=== PATIENT | female | born 1975 | race Caucasian/White ===

== ENCOUNTER 2016-12-22 14:42 | Emergency (ER) | payer MEDICARE ==
--- NOTE | ~2016-12-22 | ER ---
Unit #: [id number] #: [id number] Patient: KEDAR LOOMIS [id number] [address] [place], [place] [address] [id number] E MR#: [id number] NAME: KEDAR LOOMIS ROOM: Sex: F Age: 41 : 1975 Service Date: 12/22/2016 Attending Physician: Roscoe Sigala M.D. Primary Care Physician: Cosmo Balderas M.D. EMERGENCY DEPT PHYSICIAN NOTE Ms. Loomis is a 41-year-old woman who presented to the emergency department today complaining of persistent vomiting and continuing pain in her abdomen ever since an initial ventral hernia repair performed at our facility in October of this year. She stated that although the symptoms have been present in some degree ever since the surgery, they seem worse in the last six days. She also elaborated that subsequent to her original surgery she had to be admitted to [facility] twice in the preceding months for complications related to the original surgery. The original ventral hernia repair was performed at our facility on October 25, 2016. She was discharged in satisfactory condition on October 30, 2016. She subsequently presented to [facility] on November 18, 2016, with the complaint of abdominal pain, tenderness, and elevated white blood cell count. On that admission, she had what was thought to be a postoperative seroma. However, they could not exclude that she also had a superimposed infection. She was covered with antibiotics and cultures ultimately grew out MRSA. She was stabilized and subsequently discharged with a prescription for doxycycline on November 21, 2016. The patient was subsequently readmitted to [facility] on December 01, 2016, for nausea, vomiting, diarrhea, and continued abdominal pain. Apparently, the patient was initially prescribed doxycycline to treat her infection. However, it is noted that the patient had quite a bit of GI distress in attempting to take the medicine. Therefore, her primary care doctor switched her medicine over to Bactrim which seemed to cause even more problems, subsequently having a lot of nausea and vomiting such that she was unable to take adequate oral intake, and by the time of her presentation on December 01, 2016, was found to have acute kidney injury presumed to be related to dehydration and poor oral intake. She was hydrated and stabilized. Her labs and kidney function in particular returned to baseline. At that time, she was again seen by General Surgery at [facility], who did not recommend any additional surgical procedures being deemed necessary. However, during that admission, they aspirated the abdominal wall seroma that was visualized on the CT abdomen and pelvis performed on that visit. Upon her discharge, she was switched back to doxycycline to complete her total course of antibiotics for the previously identified infection. She presented today with the above complaints. We will repeat lab work and perform a CT abdomen and pelvis to attempt to ascertain the cause of her symptoms. After an ER workup is completed, her original surgeon with [facility] will be contacted to assist with disposition of the patient, as well as appropriate followup if indicated. Unit #: [id number] #: [id number] Patient: KEDAR LOOMIS Dictated by... Anitha Hoff/mara TD: 12/22/2016 22:00 JOB #: [id number] EMERGENCY DEPT PHYSICIAN NOTE Page 1 of 1 X Roscoe Sigala MD X EMERGENCY DEPARTMENT REPORT
--- NOTE | ~2016-12-22 | CT4 ---
[facility] A Service of [facility] & [facility] RADIOLOGY TEXT RESULTS PATIENT: KEDAR LOOMIS LOCATION: [facility] : 71 UNIT #: [id number] AGE: [address]: Roscoe Sigala MD SEX: F ORDER DR: [id number] [facility] [address] [place], [place] [address] [id number] E MR#: [id number] Acc #: [id number] NAME: KEDAR LOOMIS : 1975 SEX: F STUDY DATE/TIME: 12/22/2016 15:22 UNIT: GINO ROOM: STUDY DESCRIPTION: CT Abd and Pelv Wo Cont Attending Physician: Roscoe Sigala M.D. Ordering Physician: Roscoe Sigala M.D. Primary Care Physician: Cosmo Balderas M.D. MEDICAL IMAGING REPORT This report is preliminary unless electronic signature is present EXAM Abdomen and pelvis CT without HISTORY Cervical cancer treated in 2017 with subsequent postoperative infection, nausea, vomiting and abdominal pain, diffuse for 6 days. Post hysterectomy and cholecystectomy. Ventral hernia repair. Colon resection. MRSA. COMMENT CT abdomen and pelvis performed without IV or oral contrast media using a urinary tract stone protocol. Lack of intravenous contrast media limits evaluation for pathology other than urinary tract calculus disease. This CT exam was performed with one or more of the following radiation dose reduction techniques: automatic exposure control, adjustment of mA and/or kV according to patient size, and iterative reconstruction. COMPARISON Comparison study from 09/27/2016. FINDINGS Redemonstrated is a noncalcified nodule left lower lobe posterolaterally 6-7 mm in dimension not significantly changed in size and prior. Please refer back to the chest CT from 09/27/2016. The dome of the noncontrast liver is not in the field of view. It is, otherwise, unremarkable. The patient is post cholecystectomy. Study is limited by obesity. The spleen, adrenal glands unremarkable. The pancreas is atrophic but, otherwise, grossly unremarkable on this noncontrast study. There is no intrarenal calculus or hydronephrosis suspected and there is no evidence for abdominal aortic aneurysm. Since the prior study, the patient has had repair of the hernia. The bowel loops are now reduced into the abdomen but there is a sac corresponding to the site of the prior hernia sac which is filled with fluid. It could be hematoma or seroma but infected fluid STS. [facility] A Service of [facility] RADIOLOGY TEXT RESULTS PATIENT: KEDAR LOOMIS LOCATION: [facility] : 71 UNIT #: [id number] AGE: [address]: Roscoe Sigala MD SEX: F ORDER DR: is not excluded and please correlate further clinically. There is still a broad hernia at midline adjacent to this fluid-filled sac which contains fat. There is no bowel herniating into the hernia. The broad dehiscence of the anterior abdominal wall at midline is about 5.8 cm in width. On the coronal reformatted imaging, the remaining sac has a somewhat bilobed configuration consistent with the initial hernia sac. There is probably some postoperative scar left lateral anterior pelvic of soft tissues. Please correlate for prior drain placement or any concern for a fistula. Evaluation of the pelvis shows an unremarkable appearance to the urinary bladder. The patient is post hysterectomy. The study has some oral contrast media present but the lack of IV contrast media limits assessment for metastatic disease. There is nothing to suggest bowel obstruction. The appendix is radiographically normal. There is no drainable fluid collection inside the peritoneal cavity. The fluid-containing hernia sac-like structure in the left anterior abdominal wall measures about 9.1 cm SI dimension, 6 cm AP dimension, and 9.7 cm mL dimension. IMPRESSION 1. Study is limited by lack of IV contrast media. 2. The patient has had interval surgery for an anterior abdominal wall hernia. The bowel loops have now been reduced into the peritoneal cavity and there is no evidence for bowel obstruction. At the site of the prior hernia sac, there is now a fluid-filled sac which is located anteriorly left paramedian location measuring about 9.7 cm mL dimension x 9.1 cm SI dimension x 6 cm AP dimension. This could simply be postoperative hematoma or seroma. If there is concern for infection, fluid could be sampled. Please correlate further clinically. There is no clear inflammatory change in the surrounding tissue at this time. Deep to this fluid-filled sac, there is still a broad defect at midline in the anterior abdominal wall which contains a small amount of fat. There is also what is probably an old drain tract left side laterally level of the pelvis. Please correlate with physical exam findings to exclude any concern for fistula. 3. The appendix is radiographically normal. 4. Stable noncalcified nodule left lower lobe. 5. Post cholecystectomy and hysterectomy. STAT * RESULT Dictated by... Concha Andrea M.D. THIS IS AN ELECTRONICALLY VERIFIED REPORT Concha Andrea M.D. at 12/22/2016 11:05 PM GAYLE/kyra [facility]. [facility] A Service of [facility] & [facility] RADIOLOGY TEXT RESULTS PATIENT: KEDAR LOOMIS LOCATION: [facility] : 71 UNIT #: [id number] AGE: [address]: Roscoe Sigala MD SEX: F ORDER DR: TD: 12/22/2016 16:03 JOB #: [id number] MEDICAL IMAGING REPORT Page 1 of 1 COPY
[~2016-12-22 14:42] MED LIST: ACETAMINOPHEN325 MG PO; ADEPEX PO; ADIPEX PO; ALBUTEROL17 G1 IH; ALBUTEROL17 GM; ALBUTEROL17 GM INH; ALLEGRA180 MG PO; ALPRAZOLAM PO; AMBIEN PO; AMBIEN10 MG PO; AMITRIPTYLINE H50 MG PO; AMITRYPTYLINE PO; ATORVASTATIN CA10 MG PO; AUGMENTIN875 M1 PO; BACTRIM DS TABL1 TA1 PO; CHANTIX PO; COLACE PO; COMBIVENT INH14.7 GM INH; CYMBALTA PO; CYMBALTA30 MG PO; DETROL LA PO; DIAZEPAM PO; DICLOFENAC PO; DITROPAN XL PO; DITROPAN XL5 M2 PO; DOCUSATE SODIU100 MG PO; DOXYCYCLINE HY100 M3 PO; DOXYCYCLINE PO; DULERA 200 MCG/13 GM INH; DULOXETINE HCL60 MG PO; ENABLEX7.5 MG PO; ESTRACE PO; ESTRACE2 MG PO; ESTRADIOL0.5 MG PO; FLAGYL PO; GLIPIZIDE10 MG PO; GLUCOPHAGE500 M1 PO; HYDROCHLOROTH12.5 M1 PO; HYDROCODON-ACE1 EAC9 PO; IMITREX PO; IMITREX50 MG PO; LEVAQUIN PO; LIORESAL10 MG PO; LISINOPRIL20 MG PO; LOPID600 MG PO; LOPRESSOR PO; LORTAB 7.5-5001 TAB PO; METFORMIN PO; MIRALAX255 GM PO; MOBIC PO; MORPHINE IR PO; MS CONTIN PO; MYCOSTATIN POWD15 GM EXT; NABUMETONE500 M1 PO; NEURONTIN PO; NEURONTIN300 MG PO; NEURONTIN600 MG PO; NEXIUM 24HR20 MG; NEXIUM PO; OMEPRAZOLE20 M2 PO; PAXIL PO; PEN-VEE K PO; PERCOCET 10/3251 TAB PO; PERCOCET5/325; PERCOCET5/325 PO; PHENERGAN PO; PREMARIN PO; PREMARIN1.25 MG PO; PREPARATION H O60 GM PR; PREVACID PO; PRILOSEC20 M1 PO; PROAIR HFA8.5 GM INH; PROMETHAZINE HC25 MG PO; PROTONIX PO; PROZAC PO; QVAR7.3 G1 IH; QVAR7.3 GM INH; ROBAXIN PO; SEROQUEL PO; SEROQUEL300 MG PO; SINGULAIR; SINGULAIR PO; SODIUM CHLORI1000 ML IR; SOMA PO; SYMBICORT INH; TIZANIDINE HCL4 M1 PO; TOPAMAX PO; TOPAMAX50 MG PO; TRAMADOL HCL50 M1 PO; VASOTEC PO; VERAMYST10 GM IH; VESICARE PO; VISTARIL50 MG PO; VITAMIN D2000 UNIT PO; VITAMIN D400 UNI2 PO; VOLTAREN75 MG PO; WELLBUTRIN PO; XANAX1 MG PO; ZOCOR PO; ZOCOR10 MG PO; ZOCOR20 MG PO
[2016-12-22 14:49] LABS: BASOPHIL# 0.1 X10e3 (0-0.3); EOSINOPHIL# 1.1 X10e3 (0-0.7); EOSINOPHIL% 9.5 % (0.0-7.0); HEMATOCRIT 36.1 % (35.0-45.0); HEMOGLOBIN 11.4 gm/dL (12.0-16.0); LYMPHOCYTE# 2.7 X10e3 (1.0-3.5); LYMPHOCYTE% 23.4 % (17.0-45.0); MEAN CELL VOLUME 89.3 FL (83-96); MEAN CORPUSCULAR HEMOGLOBIN 28.1 PG (28-34); MEAN CORPUSCULAR HGB CONC 31.5 g/dL (30-36); MEAN PLATELET VOLUME 7.7 FL (6.5-11.5); MONOCYTE% 8.5 % (3.0-12.0); NEUTROPHIL# 6.6 X10e3 (1.5-7.1); NEUTROPHIL% 57.6 % (40-75); PLATELET COUNT 495 X10e3 (140-420); RED BLOOD COUNT 4.04 X10e (3.90-5.30); RED CELL DISTRIBUTION WIDTH 16.9 % (11.0-15.5); WHITE BLOOD COUNT 11.5 X10e3 (4.0-10.5)
[2016-12-22 15:09] LABS: DIFF IND NO
[2016-12-22 15:11] LABS: ALBUMIN SERUM 3.5 g/dL (3.5-5.0); BILIRUBIN, DIRECT 0.1 mg/dL (0.0-0.2); BILIRUBIN,INDIRECT 0.7 mg/dL (0.0-0.9); BILIRUBIN,TOTAL 0.8 mg/dL (0.2-2.0); CALCIUM SERUM 9.7 mg/dL (8.4-10.2); CREATININE SERUM 1.7 mg/dL (0.6-1.4); GLOM FILT RATE Estimated 36.3 mL/min (>60); POTASSIUM 4.6 mmol/L (3.5-5.1); PROTEIN TOTAL SERUM 7.3 g/dL (6.0-8.3)
[2016-12-22 15:23] LABS: URINE SOURCE CLEAN CATCH
[2016-12-22 15:40] LABS: URINE APPEARANCE CLEAR; URINE BILIRUBIN NEG (NEG); URINE BLOOD NEG (NEG); URINE COLOR YELLOW; URINE GLUCOSE NEG (NEG); URINE KETONE NEG (NEG); URINE LEUKOCYTE ESTERASE TRACE (NEG); URINE NITRATE NEG (NEG); URINE PROTEIN NEG (NEG); URINE SPECIFIC GRAVITY 1.014 (1.003-1.035); URINE UROBILINOGEN 0.2 MG/DL (NEG)
[2016-12-22 15:54] LABS: URBCS1 AUWI 0-2 /[HPF] (0-2); URINE BACTERIA AUWI NEG (NEGATIVE); URINE SQUAMOUS EPITHELIAL CELL MOD /[HPF]
[2016-12-22 15:58] LABS: CULTURE INDICATED? NO
== END 2016-12-22 17:21 | disposition home or self-care (01) ==
LOC: CFTX 14:42
DX: K91.840 Postprocedural hemorrhage of a digestive system organ or structure following a digestive system procedure (principal); E86.0 Dehydration; N17.9 Acute kidney failure, unspecified; E11.9 Type 2 diabetes mellitus without complications; E78.5 Hyperlipidemia, unspecified; I10 Essential (primary) hypertension; F31.9 Bipolar disorder, unspecified; K21.9 Gastro-esophageal reflux disease without esophagitis; Z90.710 Acquired absence of both cervix and uterus; Z98.51 Tubal ligation status
CPT/HCPCS: 36415; 74176; 80048; 80076; 81003; 83690; 85025; 96361; 96374; 96375; 96376; 99284; J2270; J2405

== ENCOUNTER 2017-05-16 17:35 | Emergency (ER) | payer MEDICARE ==
[~2017-05-16] VITALS: Ht 152.4 cm; Wt 105.2 kg
--- NOTE | ~2017-05-16 | CT2 ---
[facility] A Service of [facility] & [facility] RADIOLOGY TEXT RESULTS PATIENT: KEDAR LOOMIS LOCATION: [facility] : 71 UNIT #: [id number] AGE: [address]: Tomasz Gomez MD SEX: F ORDER DR: [id number] [facility] [address] [place], [place] [address] [id number] E MR#: [id number] Acc #: [id number] NAME: KEDAR LOOMIS : 1975 SEX: F STUDY DATE/TIME: 05/16/2017 21:07 UNIT: GINO ROOM: STUDY DESCRIPTION: CT Abd and Pelv W Cont Attending Physician: Tomasz Gomez M.D. Ordering Physician: Tomasz Gomez M.D. Primary Care Physician: Cosmo Balderas M.D. MEDICAL IMAGING REPORT This report is preliminary unless electronic signature is present EXAM Abdomen and pelvis CT with contrast HISTORY Vomiting beginning yesterday with abdominal pain for the past 5 days. Pain is greater on the left than on the right. Hernia repair October 2016. Open abdominal wound. TECHNIQUE Axial images were obtained with oral and intravenous contrast. 100 mL of Isovue was used. Comparison scan 12/22/2016. This CT exam was performed with one or more of the following radiation dose reduction techniques: automatic control, adjustment of mA and/or kV according to patient size, and iterative reconstruction. FINDINGS There is a small nodule at the left lung base unchanged from the previous examination. It measures approximately 6 mm in diameter. The right lung base is clear. In the abdomen a low-density liver lesion is noted consistent with either a small cyst or hemangioma. It measures 1.8 cm in diameter. It is unchanged from 2014 where the appearance favored a hemangioma. No suspicious liver lesions are seen. The spleen, pancreas, kidneys and adrenals are unremarkable. There is no evidence of retroperitoneal adenopathy or ascites and no distended bowel loops are seen. Postoperative changes in the anterior abdominal wall are seen consistent with hernia repair. There is an open wound along the left lower quadrant that has some bubbles of air within it but no drainable fluid collections are noted. This extends down to the abdominal wall musculature but not deep. In the pelvis there is no evidence of adenopathy, mass or fluid STS. [facility] A Service of [facility] RADIOLOGY TEXT RESULTS PATIENT: KEDAR LOOMIS LOCATION: [facility] : 71 UNIT #: [id number] AGE: [address]: Tomasz Gomez MD SEX: F ORDER DR: aguilar. No inflammatory bowel disease is seen. There is a small recurrence to the abdominal wall hernia at the level of the umbilicus. This was also seen on the previous scan. A subcutaneous seroma seen on the previous scan is no longer seen. IMPRESSION 1. The seroma has resolved since the previous scan in December. 2. There is inflammatory change left lower quadrant subcutaneously but no drainable fluid collection is seen and no deep extension of the peritoneum is noted. 3. Recurrent hernia along the inferior aspect of the mass is unchanged. 4. No evidence of bowel obstruction or inflammatory bowel disease. No acute findings in the abdomen or pelvis. Dictated by... Fernando Colunga M.D. THIS IS AN ELECTRONICALLY VERIFIED REPORT Fernando Colunga M.D. at 05/19/2017 7:13 AM YVONNE/jack TD: 05/18/2017 00:44 JOB #: [id number] MEDICAL IMAGING REPORT Page 1 of 1 COPY
[2017-05-16 18:30] LABS: BASOPHIL# 0.1 X10e3 (0-0.3); BASOPHIL% 1.1 % (0-2.5); EOSINOPHIL# 0.3 X10e3 (0-0.7); EOSINOPHIL% 2.2 % (0.0-7.0); HEMATOCRIT 37.3 % (35.0-45.0); HEMOGLOBIN 12.1 gm/dL (12.0-16.0); LYMPHOCYTE# 1.5 X10e3 (1.0-3.5); LYMPHOCYTE% 11.8 % (17.0-45.0); MEAN CELL VOLUME 84.7 FL (83-96); MEAN CORPUSCULAR HEMOGLOBIN 27.4 PG (28-34); MEAN CORPUSCULAR HGB CONC 32.4 g/dL (30-36); MONOCYTE# 0.8 X10e3 (0-1.0); NEUTROPHIL% 78.9 % (40-75); PLATELET COUNT 481 X10e3 (140-420); RED BLOOD COUNT 4.41 X10e (3.90-5.30); RED CELL DISTRIBUTION WIDTH 16.5 % (11.0-15.5); WHITE BLOOD COUNT 12.7 X10e3 (4.0-10.5)
[2017-05-16 18:35] LABS: DIFF IND NO
[2017-05-16 18:53] LABS: ALBUMIN SERUM 4.2 g/dL (3.5-5.0); ALKALINE PHOSPHATASE 65 U/L (32-92); ALT (SGPT) 14 U/L (10-40); AST (SGOT) 14 U/L (10-42); BILIRUBIN,TOTAL 0.6 mg/dL (0.2-2.0); BLOOD UREA NITROGEN 31 mg/dL (9-23); BUN/CREATININE RATIO 34.44; CALCIUM SERUM 9.3 mg/dL (8.4-10.2); CARBON DIOXIDE 17 mmol/L (22-31); CHLORIDE 111 mmol/L (100-111); CREATININE SERUM 0.9 mg/dL (0.6-1.4); GLOM FILT RATE Estimated 78.4 mL/min (>60); GLUCOSE FASTING 134 mg/dL (70-110); LIPASE 26 U/L (22-51); POTASSIUM 3.8 mmol/L (3.5-5.1); SODIUM 140 mmol/L (135-145)
[2017-05-16 18:54] LABS: BILIRUBIN, DIRECT <0.1 mg/dL (0.0-0.2); BILIRUBIN,INDIRECT 0.5 mg/dL (0.0-0.9)
== END 2017-05-16 21:52 | disposition home or self-care (01) ==
LOC: CED 17:35
PROVIDERS: Emergency Medicine
DX: R11.2 Nausea with vomiting, unspecified (principal); R10.9 Unspecified abdominal pain; G89.29 Other chronic pain; J44.9 Chronic obstructive pulmonary disease, unspecified; F31.9 Bipolar disorder, unspecified; I10 Essential (primary) hypertension; E11.9 Type 2 diabetes mellitus without complications; Z90.49 Acquired absence of other specified parts of digestive tract; Z90.710 Acquired absence of both cervix and uterus; Z88.8 Allergy status to other drugs, medicaments and biological substances
CPT/HCPCS: 36415; 74177; 80048; 80076; 83690; 85025; 96361; 96374; 96375; 99284; J2270; J2405; Q9967

== ENCOUNTER 2017-06-03 17:32 | Emergency (ER) | payer MEDICARE ==
[~2017-06-03] VITALS: Ht 152.4 cm; Wt 123.4 kg
--- NOTE | ~2017-06-03 | CR2 ---
[facility] A Service of [facility] & [facility] RADIOLOGY TEXT RESULTS PATIENT: KEDAR LOOMIS LOCATION: [facility] : 71 UNIT #: [id number] AGE: [address]: Fernando Mattson MD SEX: F ORDER DR: [id number] [facility] [address] [place], [place] [address] [id number] E MR#: [id number] Acc #: [id number] NAME: KEDAR LOOMIS : 1975 SEX: F STUDY DATE/TIME: 06/03/2017 18:57 UNIT: [facility] ROOM: STUDY DESCRIPTION: CR Abdomen Acute Series Attending Physician: Fernando Mattson M.D. Ordering Physician: Fernando Mattson M.D. Primary Care Physician: Cosmo Balderas M.D. MEDICAL IMAGING REPORT This report is preliminary unless electronic signature is present EXAM Acute abdomen series. HISTORY Vomiting and nausea and low abdomen pain for 3 days. FINDINGS Flat and upright views of the abdomen and upright view of the chest demonstrate extensive metal tacks over the abdomen and pelvis, corresponding to prior abdominal wall mesh graft placement and hernia repair. No bowel dilatation or displacement. Surgical clips in the right upper quadrant. Upright view of the chest demonstrates the cardiac size and pulmonary vascularity are normal. No infiltrates or effusions. IMPRESSION No acute findings. Normal bowel gas pattern. No active disease in the chest. Dictated by... Carlos Murillo M.D. THIS IS AN ELECTRONICALLY VERIFIED REPORT Carlos Murillo M.D. at 06/04/2017 11:52 PM DFL/cady TD: 06/04/2017 10:15 JOB #: [id number] MEDICAL IMAGING REPORT Page 1 of 1 COPY
[2017-06-03 18:53] LABS: BASOPHIL# 0.1 X10e3 (0-0.3); EOSINOPHIL# 0.5 X10e3 (0-0.7); EOSINOPHIL% 4.7 % (0.0-7.0); HEMATOCRIT 35.3 % (35.0-45.0); HEMOGLOBIN 11.7 gm/dL (12.0-16.0); LYMPHOCYTE# 2.7 X10e3 (1.0-3.5); LYMPHOCYTE% 27.9 % (17.0-45.0); MEAN CELL VOLUME 85.5 FL (83-96); MEAN CORPUSCULAR HEMOGLOBIN 28.3 PG (28-34); MONOCYTE# 0.6 X10e3 (0-1.0); NEUTROPHIL# 5.9 X10e3 (1.5-7.1); NEUTROPHIL% 60.4 % (40-75); PLATELET COUNT 423 X10e3 (140-420); RED BLOOD COUNT 4.13 X10e (3.90-5.30); RED CELL DISTRIBUTION WIDTH 17.3 % (11.0-15.5); WHITE BLOOD COUNT 9.8 X10e3 (4.0-10.5)
[2017-06-03 18:56] LABS: DIFF IND NO
[2017-06-03 19:17] LABS: ALBUMIN SERUM 3.6 g/dL (3.5-5.0); ALKALINE PHOSPHATASE 62 U/L (32-92); ALT (SGPT) 14 U/L (10-40); AMYLASE 7 U/L (0-46); AST (SGOT) 16 U/L (10-42); BILIRUBIN,TOTAL 0.4 mg/dL (0.2-2.0); BLOOD UREA NITROGEN 17 mg/dL (9-23); CARBON DIOXIDE 23 mmol/L (22-31); CHLORIDE 104 mmol/L (100-111); GLUCOSE FASTING 102 mg/dL (70-110); LIPASE 16 U/L (22-51); POTASSIUM 3.9 mmol/L (3.5-5.1); PROTEIN TOTAL SERUM 6.9 g/dL (6.0-8.3); SODIUM 137 mmol/L (135-145)
[2017-06-03 19:19] LABS: BILIRUBIN, DIRECT <0.1 mg/dL (0.0-0.2); BILIRUBIN,INDIRECT 0.3 mg/dL (0.0-0.9)
== END 2017-06-03 21:39 | disposition home or self-care (01) ==
LOC: CED 17:32
PROVIDERS: Emergency Medicine
DX: R10.9 Unspecified abdominal pain (principal); R11.10 Vomiting, unspecified
CPT/HCPCS: 36415; 74022; 80048; 80076; 82150; 83690; 85025; 96361; 96374; 99284; J2405